=== PATIENT | female | born 1950 | race African-American/Black ===

== ENCOUNTER 2024-05-12 11:30 | Emergency (ER) | payer MEDICARE ==
[~2024-05-12] VITALS: Ht 172.7 cm; Wt 82.0 kg
[2024-05-12 11:33] VITALS: O2SAT 99
[2024-05-12 11:58] LABS: CLARITY URINE CLEAR (CLEAR); COLOR URINE YELLOW (YELLOW); GLUCOSE URINE 3+ (NEGATIVE); KETONES URINE NEGATIVE (NEGATIVE); LEUKOCYTE ESTERASE URINE NEGATIVE (NEGATIVE); NITRITE URINE NEGATIVE (NEGATIVE); OCCULT BLOOD URINE NEGATIVE (NEGATIVE); PROTEIN URINE 2+ (NEGATIVE); SPECIFIC GRAVITY URINE 1.011 (1.005-1.030); UROBILINOGEN URINE 0.2 E.U./dL (0.2-1.0)
[2024-05-12 12:13] LABS: RBC URINE 0-2 /hpf (0-2); WBC URINE 0-2 /hpf (0-2)
[2024-05-12 12:14] LABS: BACTERIA URINE FEW; SQUAMOUS EPITHELIAL CELL URINE FEW /lpf (RARE/1+); YEAST URINE NONE SEEN
[2024-05-12] MEDS: SODIUM CHLORIDE 0.9% 1,000 ML IV ONE (12:15)
[2024-05-12 12:20] LABS: BASOPHILS % 0.8 % (0.0-2.0); EOSINOPHILS % 2.2 % (0.0-5.0); HEMATOCRIT. 41.5 % (36.0-48.0); HEMOGLOBIN. 14.1 g/dL (12.0-16.0); LYMPHOCYTES % 32.3 % (20.0-50.0); MEAN CORPUSCULAR HEMOGLOBIN 31.6 pg (28.0-32.0); MEAN CORPUSCULAR HGB CONC 33.9 g/dL (31.0-37.0); MEAN CORPUSCULAR VOLUME 93.3 fL (81.0-99.0); MEAN PLATELET VOLUME 10.4 fl (7.4-10.4); MONOCYTES % 8.1 % (2.0-8.0); NEUTROPHILS % 56.6 % (40.0-76.0); PLATELET 226 x1000/uL (130-400); RED BLOOD CELL COUNT 4.45 mill/uL (4.2-5.4); WHITE BLOOD COUNT 7.1 x1000/uL (4.5-11.0)
[2024-05-12] MEDS: MECLIZINE 25MG TABLET PO ONE (12:21)
[2024-05-12 12:24] LABS: CHLORIDE 100 mEq/L (98-107); POTASSIUM 3.6 mEq/L (3.5-5.1); SODIUM 134 mEq/L (136-145)
[2024-05-12 12:25] LABS: CARBON DIOXIDE 25 mEq/L (21-32)
[2024-05-12 12:28] LABS: INR 0.9; PROTHROMBIN TIME 10.1 sec (9.6-11.0)
[2024-05-12 12:30] LABS: CREATININE 0.9 mg/dL (0.6-1.0); GLUCOSE 344 mg/dL (70-105); UREA NITROGEN BLOOD 10 mg/dL (9-23)
[2024-05-12 12:31] LABS: TROPONIN I HIGH SENSITIVITY 6 ng/L (3.0-34)
[2024-05-12 14:44] VITALS: BP 165/68; PULSE 68; RESP 17; TEMP 98.2
[2024-05-12 14:55] VITALS: BP 165/68; PULSE 68; RESP 17; TEMP 98.2
== END 2024-05-12 17:12 | disposition left against medical advice (07) ==
LOC: ER 11:30 → 5WST 14:08 → UNDOADMIN 14:08 → EDBEDREQTM 14:11 → EDBEDREQ 14:11 → UNDODISIN 17:00
DX: R42 Dizziness and giddiness (principal); E11.65 Type 2 diabetes mellitus with hyperglycemia; I10 Essential (primary) hypertension; Z98.890 Other specified postprocedural states
CPT/HCPCS: 99285; 96360; 70450; 71045; 80048; 81003; 83880; 85025; 85610; 84484; 36415; 93005; J8597; J7030